=== PATIENT | female | born 1975 | race Caucasian/White ===

== ENCOUNTER 2022-10-28 18:45 | Emergency (ER) | payer BC ==
--- NOTE | 2022-10-28 18:54 | ERPHSYRPT ---
- History of Present Illness Time Seen by Provider: 10/28/22 18:54 Source: patient Exam Limitations: no limitations Physician History: This is a 47-year-old obese white female patient whose has asthma and splits her time between [facility] and [place] where she works. Her nebulizer machine is in [place]. Her symptoms of cough and shortness of breath have worsened over the last 2 to 3 days. She has a nonproductive cough. She does not have chest pain. She has no calf pain. She is had no hemoptysis. She has not had a fever. She is use her albuterol inhaler multiple times and more than usual in the last 2 to 3 days. Timing/Duration: day(s) (2 to 3 days), worse Cough Quality/Degree: moderate, dry cough Possible Cause: occasional episodes Modifying Factors: Improves With: coughing Associated Symptoms: cough, shortness of breath (With coughing spells) Allergies/Adverse Reactions: Penicillins Allergy (Verified 10/28/22 19:06) Home Medications: Albuterol 8 gm Mdi Hfa [Ventolin Hfa MDI] 0 gm IH UD 10/28/22 [History] Beclomethasone Dipropionate [Qvar Redihaler] 0 inh PO UD 10/28/22 [History] Fluticasone Propionate [Flonase NASAL] 1 spray INTRANASAL DAILY 10/28/22 [History] Travel Risk - International Travel Have you traveled outside of the country in past 3 weeks: No - Coronavirus Screening Are you exhibiting any of the following symptoms?: Yes Symptoms: Cough: New Onset, Shortness of Breath Close contact with a COVID-19 positive Pt in past 14-21 Days: No - Review of Systems Constitutional: No Symptoms Eyes: No Symptoms Ears, Nose, & Throat: No Symptoms Respiratory: Cough, Dyspnea Cardiac: No Symptoms (With coughing spells) Abdominal/Gastrointestinal: No Symptoms Genitourinary Symptoms: No Symptoms Musculoskeletal: No Symptoms Skin: No Symptoms Neurological: No Symptoms Psychological: No Symptoms Endocrine: No Symptoms Hematologic/Lymphatic: No Symptoms Immunological/Allergic: No Symptoms All Other Systems: Reviewed and Negative - Past Medical History Pertinent Past Medical History: Yes - Nursing Vital Signs Nursing Vital Signs: Initial Vital Signs Temperature 99.0 F 10/28/22 18:55 Pulse Rate 105 H 10/28/22 18:55 Respiratory Rate 28 H 10/28/22 18:55 Blood Pressure 134/86 10/28/22 18:55 O2 Sat by Pulse Oximetry 97 10/28/22 18:55 Pain Scale Pain Intensity 2 - Physical Exam General Appearance: no apparent distress, alert, anxiety, obese Eye Exam: PERRL/EOMI, eyes nml inspection Ears, Nose, Throat Exam: normal ENT inspection, moist mucous membranes Neck Exam: normal inspection, non-tender, supple, full range of motion Respiratory Exam: airway intact, wheezing (Lateral diffuse expiratory), No chest tenderness, No respiratory distress Cardiovascular Exam: regular rate/rhythm, normal heart sounds, normal peripheral pulses Gastrointestinal/Abdomen Exam: soft, normal bowel sounds, No tenderness Pelvic Exam: not done Rectal Exam: not done Back Exam: normal inspection, normal range of motion, No CVA tenderness, No vertebral tenderness Extremity Exam: normal inspection, normal range of motion, pelvis stable Neurologic Exam: alert, oriented x 3, cooperative, supervisor precision optical elements II-XII nml as tested, normal mood/affect, nml cerebellar function, nml station & gait, sensation nml Skin Exam: normal color, warm, dry Lymphatic Exam: No adenopathy SpO2 Interpretation: normal - Course Nursing assessment & vital signs reviewed: Yes Ordered Tests: Active Orders 24 hr Category Date Time Status Pulse Oximetry (ED) STAT Care 10/28/22 19:20 Active CHEST 1 VIEW (PORTABLE) Stat Exams 10/28/22 19:20 Taken Respiratory Therapy Assessment DAILY RT 10/28/22 19:22 Completed Medication Summary Discontinued Medications Generic Name Dose Route Start Last Admin Trade Name Chai PRN Reason Stop Dose Admin Albuterol/Ipratropium 3 ml 10/28/22 19:20 10/28/22 19:22 Ipratropium/Albuterol Sulfate 3 Ml Ampul.Neb IH 10/28/22 19:21 3 ml STAT ONE Administration Albuterol/Ipratropium Confirm 10/28/22 19:21 Ipratropium/Albuterol Sulfate 3 Ml Ampul.Neb Administered 10/28/22 19:22 Dose 3 ml IH .STK-MED ONE Methylprednisolone Sodium 0 mg 10/28/22 19:20 10/28/22 19:29 Succinate 125 mg/ Sterile IM 10/28/22 19:21 125 mg Water 2 ml STAT ONE Administration Methylprednisolone Sodium Succinate Confirm 10/28/22 19:28 Methylprednis Sod Succ 125 Mg/2 Ml Vial Administered 10/28/22 19:29 Dose 125 mg .ROUTE .STK-MED ONE Sterile Water Confirm 10/28/22 19:27 Water For Injection,Sterile 10 Ml Vial Administered 10/28/22 19:28 Dose 10 ml IJ .STK-MED ONE Lab/Rad Data: Laboratory Results 10/28/22 Range/Units 19:40 Influenza Type A Ag POSITIVE (NEGATIVE) Influenza Type B Ag NEGATIVE (NEGATIVE) RSV (PCR) NEGATIVE (Negative) SARS-CoV-2 (PCR) NEGATIVE (NEGATIVE) - Progress Progress: improved, re-examined Air Movement: good Progress Note: 10/28/22 19:58 Chest x-ray shows no acute cardiopulmonary process. Blood Culture(s) Obtained: No Antibiotics given: No Counseled pt/family regarding: lab results, diagnosis, need for follow-up, rad results - Departure Departure Disposition: Home Clinical Impression: Influenza A H1N1 infection Condition: Stable Critical Care Time: No Referrals: MITCH TREVIZO [Primary Care Provider] - Follow up/PCP as directed Additional Instructions: Drink plenty fluids. Take your medication as prescribed follow-up with your primary care provider for further evaluation and management. Prescriptions: Hydrocodone/Acetaminophen [Hydrocodone-Acetamn 7.5-325/15] 10 ml PO Q8H PRN PRN #120 ml MDD 30 ml PRN Reason: Cough Prednisone 10 mg [Deltasone 10 mg] 10 mg PO TID #12 tablet Oseltamivir 75 mg [Tamiflu 75MG Capsule] 75 mg PO BID #10 cap
[2022-10-28] MEDS ORDERED: DUONEB 0.5-3 MG/3 ml Neb IH ONE ×2 (19:20→19:21)
[2022-10-28] MEDS ORDERED: solu-MEDROL 125 MG, Sterile H2O 10 ml 2 ML IM ONE ×2 (19:20)
[2022-10-28] MEDS ORDERED: Sterile H2O 10 ml IJ ONE (19:27)
[2022-10-28] MEDS ORDERED: solu-MEDROL ONE (19:28)
[2022-10-28 20:15] VITALS: BP 143/91
[2022-10-28 20:23] LABS: INFLUENZA B NEGATIVE (NEGATIVE); RESPIRATORY SYNCTIAL VIRUS NEGATIVE (Negative); SARS-CoV-2 Xpert Express NEGATIVE (NEGATIVE)
[2022-10-28 20:31] LABS: INFLUENZA A POSITIVE (NEGATIVE)
[2022-10-28] MEDS ORDERED: HYDROCODONE-ACETAMIN 2.5-108/5 ML SOLUTION PO STA (20:32)
[2022-10-28] MEDS ORDERED: Tamiflu 75MG Capsule PO ONE ×2 (20:32→20:39)
[2022-10-28] MEDS ORDERED: HYDROCODONE-ACETAMIN 2.5-108/5 ML SOLUTION ONE (20:39)
[2022-10-28 20:47] VITALS: PULSE 84; O2SAT 95
--- NOTE | 2022-10-29 08:52 | XRAY ---
Indication: Cough and short of breath. Comparison: None Portable chest demonstrates normal heart, lungs, and bony thorax with incidental tiny left lung calcified granuloma.
== END 2022-10-28 20:59 | disposition home or self-care (01) ==
LOC: ED 18:45
DX: J10.1 Influenza due to other identified influenza virus with other respiratory manifestations (principal); R06.02 Shortness of breath; R05.9 Cough, unspecified; Z79.891 Long term (current) use of opiate analgesic; Z79.52 Long term (current) use of systemic steroids; Z79.899 Other long term (current) drug therapy
CPT/HCPCS: 0241U; 71045; 94640; 94760; 96372; 99284; J2930; A9270-GY

== ENCOUNTER 2023-11-17 18:33 | Emergency (ER) | payer BC ==
[2023-11-17 18:47] VITALS: RESP 18; TEMP 97.2
--- NOTE | 2023-11-17 19:21 | ERPHSYRPT ---
- History of Present Illness Time Seen by Provider: 11/17/23 18:45 Source: patient Exam Limitations: no limitations Patient Subjective Stated Complaint: Pt reports she has had increasingly shortness of breath for approx 3 days. Does have asthma and has been using inhalers with no relief. Triage Nursing Assessment: Pt alert and oriented x3. Respirations easy/nonlabored. Skin w/p/d. Ambulated to ED cot without difficulty. Lungs clear throughout anteriorly and posteriorly. Physician History: Patient is a 48-year-old female history of asthma presents to our ED for evaluation of shortness of breath. Symptoms started approximately 3 days ago. Patient self treated with albuterol at home at approximately 430. Patient has treated herself with albuterol several times and states that her symptoms have not improved. Upon arrival to our ED patient is in no respiratory distress lungs are clear physical exam nonremarkable. No history of PE DVT. Vitals appear to be within normal limits. Patient states otherwise healthy. Patient otherwise voices no other complaints or concerns at this time. Portions of this note were created with voice recognition technology. There may be grammatical, spelling, punctuation or sound alike errors Timing/Duration: day(s) (3 days) Activities at Onset: none Severity of Dyspnea-Max: moderate Severity of Dyspnea-Current: mild Possible Cause: unknown cause Modifying Factors: Improves With: nothing Associated Symptoms: denies symptoms Allergies/Adverse Reactions: Penicillins Allergy (Verified 11/17/23 18:34) Home Medications: Albuterol 8 gm Mdi Hfa [Ventolin Hfa MDI] 0 gm IH UD 10/28/22 [History] Beclomethasone Dipropionate [Qvar Redihaler] 0 inh PO UD 10/28/22 [History] Fluticasone Propionate [Flonase NASAL] 1 spray INTRANASAL DAILY PRN 10/28/22 [History] Fexofenadine HCl [Dia Allergy] 1 tab PO DAILY 11/17/23 [History] Hx Tetanus, Diphtheria Vaccination/Date Given: No (getting one 11/19/23) Hx Influenza Vaccination/Date Given: No Travel Risk - International Travel Have you traveled outside of the country in past 3 weeks: No - Coronavirus Screening Are you exhibiting any of the following symptoms?: Yes Symptoms: Cough: New Onset, Shortness of Breath, Headaches/Body Aches/Fatigue Close contact with a COVID-19 positive Pt in past 14-21 Days: Yes - Vaccine Status Have you recieved a Covid-19 vaccination: Yes Project Development Manager: [employer] - Vaccination Dates Date of 2cond Vaccination (if applicable): 2020 - Review of Systems Constitutional: No Symptoms, No Fever, No Chills Eyes: No Symptoms Ears, Nose, & Throat: No Symptoms Respiratory: No Symptoms, No Cough, No Dyspnea Cardiac: No Symptoms, No Chest Pain, No Edema, No Syncope Abdominal/Gastrointestinal: No Symptoms, No Abdominal Pain, No Nausea, No Vomiting, No Diarrhea Genitourinary Symptoms: No Symptoms, No Dysuria Musculoskeletal: No Symptoms, No Back Pain, No Neck Pain Skin: No Symptoms, No Rash Neurological: No Symptoms, No Dizziness, No Focal Weakness, No Sensory Changes Psychological: No Symptoms Endocrine: No Symptoms Hematologic/Lymphatic: No Symptoms Immunological/Allergic: No Symptoms All Other Systems: Reviewed and Negative - Past Medical History Pertinent Past Medical History: Yes Respiratory History: Asthma Other Medical History: chronic sinusitus - Past Surgical History Past Surgical History: Yes Female Surgical History: Section, Other Other Surgical History: tubal ablation - Social History Smoking Status: Never smoker Exposure to second hand smoke: No Drug Use: none Patient Lives Alone: No - Female History Hx Last Menstrual Period: ablation 2 years ago Hx Now: No - Nursing Vital Signs Nursing Vital Signs: Initial Vital Signs Temperature 97.2 F 11/17/23 18:34 Pulse Rate 92 H 11/17/23 18:34 Respiratory Rate 18 11/17/23 18:34 Blood Pressure 106/79 11/17/23 18:34 O2 Sat by Pulse Oximetry 98 11/17/23 18:34 Pain Scale Pain Intensity 0 - Physical Exam General Appearance: no apparent distress, alert Eye Exam: PERRL/EOMI Ears, Nose, Throat Exam: hearing grossly normal, normal ENT inspection Neck Exam: normal inspection, supple, full range of motion Respiratory Exam: normal breath sounds, lungs clear, airway intact Cardiovascular/Chest Exam: normal heart sounds, regular rate/rhythm Abdominal/Gastrointestinal Exam: soft, No tenderness, No distention, No mass Extremity Exam: non-tender, normal range of motion, normal inspection, no calf tenderness, no pedal edema Neurologic Exam: alert, oriented x 3, cooperative, supervisor insecticide II-XII nml as tested, sensation nml, No motor deficits Skin Exam: normal color, warm, No dry Lymphatic Exam: No adenopathy SpO2 Interpretation: normal SpO2: 99 O2 Delivery: Room Air - Course Nursing assessment & vital signs reviewed: Yes - Radiology Exams Chest X-ray Interpretation: Interpreted by me (No acute findings) Ordered Tests: Active Orders 24 hr Category Date Time Status Assistant Professor Of Chemistry STAT Care 11/17/23 19:03 Active EKG-ER Only STAT Care 11/17/23 19:03 Active IV Insertion STAT Care 11/17/23 19:03 Active Pulse Oximetry (ED) STAT Care 11/17/23 19:03 Active CHEST 1 VIEW (PORTABLE) Stat Exams 11/17/23 18:50 Taken CBC W DIFF Stat Lab 11/17/23 19:03 Completed CMP Stat Lab 11/17/23 19:05 Completed D-DIMER QUANTITATIVE Stat Lab 11/17/23 19:05 Completed Respiratory Therapy Assessment DAILY RT 11/17/23 19:54 Active Medication Summary Discontinued Medications Generic Name Dose Route Start Last Admin Trade Name Sammq PRN Reason Stop Dose Admin Albuterol/Ipratropium 3 ml 11/17/23 19:22 11/17/23 19:53 Ipratropium/Albuterol Sulfate 3 Ml Ampul.Neb IH 11/17/23 19:23 3 ml STAT ONE Administration Albuterol/Ipratropium Confirm 11/17/23 19:49 Ipratropium/Albuterol Sulfate 3 Ml Ampul.Neb Administered 11/17/23 19:50 Dose 3 ml IH .STK-MED ONE Methylprednisolone Sodium 0 mg 11/17/23 19:22 11/17/23 19:26 Succinate 125 mg/ Sterile IV 11/17/23 19:23 125 mg Water 2 ml STAT ONE Administration Methylprednisolone Sodium Succinate Confirm 11/17/23 19:25 Methylprednis Sod Succ 125 Mg/2 Ml Vial Administered 11/17/23 19:26 Dose 125 mg .ROUTE .STK-MED ONE Sterile Water Confirm 11/17/23 19:25 Water For Injection,Sterile 10 Ml Vial Administered 11/17/23 19:26 Dose 10 ml IJ .STK-MED ONE Lab/Rad Data: Laboratory Result Diagrams 11/17/23 19:03 11/17/23 19:05 Laboratory Results 1211/17/23 11/17/23 Range/Units Unknown 19:05 19:05 WBC (4.0-10.5) x10^3/uL RBC (4.1-5.4) x10^6/uL Hgb (12.0-16.0) g/dL Hct (35-47) % MCV (78-100) fL MCH (26-32) pg MCHC (32-36) g/dL RDW (11.5-14.0) % Plt Count (150-450) x10^3/uL MPV (7.5-11.0) fL Gran % (36.0-66.0) % Immature Gran % (Auto) (0.00-0.4) % Nucleat RBC Rel Count (0.00-0.1) % Eos # (Auto) (0-0.5) x10^3/uL Immature Gran # (Auto) (0.00-0.03) x10^3u/L Absolute Lymphs (auto) (1.0-4.6) x10^3/uL Absolute Monos (auto) (0.0-1.3) x10^3/uL Absolute Nucleated RBC (0.00-0.01) x10^3u/L Lymphocytes % (24.0-44.0) % Monocytes % (0.0-12.0) % Eosinophils % (0.00-5.0) % Basophils % (0.0-0.4) % Absolute Granulocytes (1.4-6.9) x10^3/uL Basophils # (0-0.4) x10^3/uL D-Dimer 0.39 (0.0-0.50) mg/L Sodium 135 L (137-145) mmol/L Potassium 3.8 (3.5-5.1) mmol/L Chloride 105 (98-107) mmol/L Carbon Dioxide 25 (22-30) mmol/L Anion Gap 8.5 (5-15) MEQ/L BUN 9 (7-17) mg/dL Creatinine 0.93 (0.52-1.04) mg/dL Estimated GFR 75.8 ML/MIN Glucose 109 H (74-106) mg/dL Calcium 8.4 (8.4-10.2) mg/dL Total Bilirubin 1.00 (0.2-1.3) mg/dL AST 24 (14-36) U/L ALT 26 (0-35) U/L Alkaline Phosphatase 58 (38-126) U/L Serum Total Protein 6.2 L (6.3-8.2) g/dL Albumin 3.4 L (3.5-5.0) g/dL Influenza Type A Ag NEGATIVE (NEGATIVE) Influenza Type B Ag NEGATIVE (NEGATIVE) RSV (PCR) NEGATIVE (NEGATIVE) SARS-CoV-2 (PCR) NEGATIVE (NEGATIVE) 11/17/23 Range/Units 19:03 WBC 11.3 H (4.0-10.5) x10^3/uL RBC 4.80 (4.1-5.4) x10^6/uL Hgb 13.8 (12.0-16.0) g/dL Hct 42.5 (35-47) % MCV 88.5 (78-100) fL MCH 28.8 (26-32) pg MCHC 32.5 (32-36) g/dL RDW 13.1 (11.5-14.0) % Plt Count 331 (150-450) x10^3/uL MPV 10.2 (7.5-11.0) fL Gran % 54.6 (36.0-66.0) % Immature Gran % (Auto) 0.3 (0.00-0.4) % Nucleat RBC Rel Count 0.0 (0.00-0.1) % Eos # (Auto) 0.80 H (0-0.5) x10^3/uL Immature Gran # (Auto) 0.03 (0.00-0.03) x10^3u/L Absolute Lymphs (auto) 3.37 (1.0-4.6) x10^3/uL Absolute Monos (auto) 0.83 (0.0-1.3) x10^3/uL Absolute Nucleated RBC 0.00 (0.00-0.01) x10^3u/L Lymphocytes % 29.9 (24.0-44.0) % Monocytes % 7.4 (0.0-12.0) % Eosinophils % 7.1 H (0.00-5.0) % Basophils % 0.7 (0.0-0.4) % Absolute Granulocytes 6.16 (1.4-6.9) x10^3/uL Basophils # 0.08 (0-0.4) x10^3/uL D-Dimer (0.0-0.50) mg/L Sodium (137-145) mmol/L Potassium (3.5-5.1) mmol/L Chloride (98-107) mmol/L Carbon Dioxide (22-30) mmol/L Anion Gap (5-15) MEQ/L BUN (7-17) mg/dL Creatinine (0.52-1.04) mg/dL Estimated GFR ML/MIN Glucose (74-106) mg/dL Calcium (8.4-10.2) mg/dL Total Bilirubin (0.2-1.3) mg/dL AST (14-36) U/L ALT (0-35) U/L Alkaline Phosphatase (38-126) U/L Serum Total Protein (6.3-8.2) g/dL Albumin (3.5-5.0) g/dL Influenza Type A Ag (NEGATIVE) Influenza Type B Ag (NEGATIVE) RSV (PCR) (NEGATIVE) SARS-CoV-2 (PCR) (NEGATIVE) - Progress Progress: improved Air Movement: good Progress Note: Patient is a 48-year-old female with a history of asthma presents to our ED for evaluation of shortness of breath. Patient states shortness of breath was refractory to her albuterol. Physical exam essentially nonremarkable. Workup essentially unremarkable. CBC CMP within normal limits. Troponin negative. D-dimer negative. Chest x-ray within normal limits. Patient received a dose of Solu-Medrol and DuoNeb. Patient states this improved her breathing. Vitals are normal. Patient has multiple rescue inhalers at home per patient. A prescription for prednisone was forwarded to patient's pharmacy. Patient agrees to follow-up with her primary care doctor within 48 hours for reevaluation. Portions of this note were created with voice recognition technology. There may be grammatical, spelling, punctuation or sound alike errors Complexity of problems addressed is moderate acute complicated No critical care time Complex of data reviewed and analyzed is moderate. Test ordered test reviewed. Results analyzed and correlated clinically with history and physical exam. Risk of complication and or risk of morbidity/mortality of patient management is moderate. A prescription for prednisone was forwarded to patient's pharmacy. Vital stable. Time spent to discharge patient is approximately 15 minutes. Plan of care established for shared decision making. No social determinants of health present impede follow-up. Portions of this note were created with voice recognition technology. There may be grammatical, spelling, punctuation or sound alike errors 11/17/23 20:25 Blood Culture(s) Obtained: No Antibiotics given: No Counseled pt/family regarding: lab results, diagnosis, need for follow-up, rad results - Departure Departure Disposition: Home Clinical Impression: SOB (shortness of breath) Condition: Stable Critical Care Time: No Referrals: MITCH TREVIZO [COURTESY STAFF] - Follow up/PCP as directed Additional Instructions: Discharge/Care Plan MATTHEW LIEBERMAN was seen on 11/17/23 in the Emergency Room. The patient was counseled regarding Diagnosis,Lab results, Imaging studies, need for follow up and when to return to the Emergency Room. Prescriptions given: Discharge Note I have spoken with the patient and/or caregivers. I have explained the patient's condition, diagnosis and treatment plan based on the information available to me at this time. I have answered the patient's and/or caregiver's questions and addressed any concerns. The patient and/or caregivers have as good understanding of the patient's diagnosis, condition and treatment plan as can be expected at this point. The vital signs have been stable. The patient's condition is stable and appropriate for discharge from the emergency department. The patient will pursue further outpatient evaluation with the primary care physician or other designated or consulting physician as outlined in the discharge instructions. The patient and/or caregivers are agreeable to this plan of care and follow-up instructions have been explained in detail. The patient and/or caregivers have received these instruction. The patient/and or caregivers are aware that any significant change in condition or worsening of symptoms should prompt an immediate return to this or the closest emergency department or call 911. Prescriptions: Prednisone 10 mg [Deltasone 10 mg] 40 mg PO DAILY 3 Days #12 tablet
[2023-11-17] MEDS ORDERED: solu-MEDROL 125 MG, Sterile H2O 10 ml 2 ML IV ONE ×2 (19:22)
[2023-11-17] MEDS ORDERED: DUONEB 0.5-3 MG/3 ml Neb IH ONE ×2 (19:22→19:49)
[2023-11-17] MEDS ORDERED: solu-MEDROL ONE (19:25)
[2023-11-17] MEDS ORDERED: Sterile H2O 10 ml IJ ONE (19:25)
[2023-11-17 19:31] LABS: Absolute Neutrophil Ct (ANC) 6.16 x10^3/uL (1.4-6.9); BASOPHIL % 0.7 % (0.0-0.4); Basophil (Absolute #) 0.08 x10^3/uL (0-0.4); Eosinophil % 7.1 % (0.00-5.0); Hematocrit 42.5 % (35-47); Hemoglobin 13.8 g/dL (12.0-16.0); IMMATURE GRAN # 0.03 x10^3u/L (0.00-0.03); IMMATURE GRAN % 0.3 % (0.00-0.4); Lymphocyte (Absolute #) 3.37 x10^3/uL (1.0-4.6); Lymphocytes % 29.9 % (24.0-44.0); Mean Cell Volume 88.5 fL (78-100); Mean Corpuscular Hemoglobin 28.8 pg (26-32); Mean Corpuscular Hgb Concent. 32.5 g/dL (32-36); Mean Platelet Volume 10.2 fL (7.5-11.0); Monocyte (Absolute #) 0.83 x10^3/uL (0.0-1.3); Monocytes % 7.4 % (0.0-12.0); Neutrophil % 54.6 % (36.0-66.0); Platelet Count 331 x10^3/uL (150-450); Red Cell Distribution Width 13.1 % (11.5-14.0); White Blood Count 11.3 x10^3/uL (4.0-10.5)
[2023-11-17 19:38] LABS: INFLUENZA A NEGATIVE (NEGATIVE); INFLUENZA B NEGATIVE (NEGATIVE); RESPIRATORY SYNCTIAL VIRUS NEGATIVE (NEGATIVE); SARS-CoV-2 Xpert Express NEGATIVE (NEGATIVE)
[2023-11-17 19:49] LABS: ALBUMIN 3.4 g/dL (3.5-5.0); ANION GAP 8.5 MEQ/L (5-15); Calcium 8.4 mg/dL (8.4-10.2); Creatinine 1 0.93 mg/dL (0.52-1.04); EST GLOMERULAR FILTRATION RATE 75.8 ML/MIN; Potassium 3.8 mmol/L (3.5-5.1); Total Protein 6.2 g/dL (6.3-8.2)
[2023-11-17 20:29] VITALS: BP 103/76; PULSE 80; O2SAT 99
--- NOTE | 2023-11-18 08:46 | XRAY ---
Indication: Short of breath. Comparison: October 28, 2022 Portable chest demonstrates new medial right base infiltrate versus atelectasis. Remaining heart and left lung normal. Bony thorax intact. Comment: Right lung finding not reported by interpreting ER clinician. Telephone report was given to Dr. Curran at 0845 hrs. on November 18, 2023.
== END 2023-11-17 20:29 | disposition home or self-care (01) ==
LOC: ED 18:33
DX: R06.02 Shortness of breath (principal); R91.8 Other nonspecific abnormal finding of lung field; J45.909 Unspecified asthma, uncomplicated; Z79.52 Long term (current) use of systemic steroids; Z79.899 Other long term (current) drug therapy
CPT/HCPCS: 0241U; 36000; 36415; 71045; 80053; 85025; 85379; 93005; 93041; 94640; 94760; 96374; 99284; J2930; A9270-GY